=== PATIENT | female | born 2000 | race Caucasian/White ===

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

== ENCOUNTER 2022-06-13 15:10 | Observation (INO) | payer OTHER ==
[2022-06-13 15:47] LABS: ADD URINE CULTURE? NO (NO); Appearance Clear (Clear); Bacteria None Seen /HPF (None Seen); Bilirubin Negative (Negative); Blood Negative (Negative); Epithelial Cells Rare /HPF (None Seen); Glucose, Urine Negative (Negative); Hyaline Casts NONE SEEN /LPF (0-2); Ketones Trace (Negative); Leukocyte Esterase Negative (Negative); Nitrite Negative (Negative); Protein,Urine Dip Trace (Negative); RBC 0-2 /HPF (0-5); Urobilinogen 0.2 mg/dL (0.2); WBC 0-2 /HPF (0-5)
[2022-06-13 16:02] LABS: Amphetamine,Urine NEGATIVE (NEGATIVE); Barbiturate,Urine NEGATIVE (NEGATIVE); Benzodiazepine,Urine NEGATIVE (NEGATIVE); Cocaine,Urine NEGATIVE (NEGATIVE); Methadone,Urine NEGATIVE (NEGATIVE); Opiate,Urine NEGATIVE (NEGATIVE); PCP,Urine NEGATIVE (NEGATIVE); THC,Urine NEGATIVE (NEGATIVE)
[2022-06-13 16:13] VITALS: BP 144/85; PULSE 82; O2SAT 99
== END 2022-06-13 17:05 | disposition home or self-care (01) ==
LOC: OB 15:10
PROVIDERS: ADMIT Obstetrics & Gynecology; ATTEND Obstetrics & Gynecology
DX: Z34.83 Encounter for supervision of other normal pregnancy, third trimester (principal); Z3A.36 36 weeks gestation of pregnancy
CPT/HCPCS: 80307; 81001; G0378; G0379

== ENCOUNTER 2022-06-29 04:39 | Inpatient (IN) | payer OTHER ==
[~2022-06-29 04:39] MED LIST: STADOL 2 MG IV PRN
[2022-06-29 16:47] LABS: Hematocrit 30.7 % (35-47); Hemoglobin 9.5 g/dL (12.0-16.0); Mean Corpuscular Hemoglobin 26.6 pg (26-32); Mean Corpuscular Hgb Concent. 30.9 g/dL (32-36); Mean Platelet Volume 13.8 fL (7.5-11.0); Platelet Count 163 x10^3/uL (150-450); Red Blood Count 3.57 x10^6/uL (4.1-5.4); Red Cell Distribution Width 12.8 % (11.5-14.0); White Blood Count 7.2 x10^3/uL (4.0-10.5)
[2022-06-29] MEDS: CYTOTEC PO SCH ×4 (16:50→23:05)
[2022-06-29 17:27] LABS: ABO TYPING O; Antibody Screen NEGATIVE (NEGATIVE); RH TYPING POSITIVE
[2022-06-29 17:46] LABS: Amphetamine,Urine NEGATIVE (NEGATIVE); Barbiturate,Urine NEGATIVE (NEGATIVE); Benzodiazepine,Urine NEGATIVE (NEGATIVE); Cocaine,Urine NEGATIVE (NEGATIVE); Methadone,Urine NEGATIVE (NEGATIVE); Opiate,Urine NEGATIVE (NEGATIVE); PCP,Urine NEGATIVE (NEGATIVE); THC,Urine POSITIVE (NEGATIVE)
[2022-06-30] MEDS ORDERED: Ephedrine Sulfate 50 MG/ML IV PRN
[2022-06-30] MEDS ORDERED: FENTANYL 2 MCG-BUPIV 0.125%-NS 250 ML Epidur 250 ML EPIDURAL SCH
[2022-06-30] MEDS ORDERED: STADOL 2 MG IV PRN
[2022-06-30] MEDS ORDERED: Lactated Ringers 1,000 ML IV ONE
[2022-06-30] MEDS ORDERED: Lactated Ringers 1,000 ML IV SCH
[2022-06-30] MEDS: CYTOTEC PO SCH ×3 (01:05→04:59)
[2022-06-30] MEDS: Lactated Ringers 1,000 ML IV SCH ×3 (01:14→11:40)
[2022-06-30] MEDS ORDERED: Lactated Ringers 2,000 ML IV ONE (05:32)
[2022-06-30] MEDS: TYLENOL EXTRA STRENGTH 500 MG PO PRN ×2 (05:37→19:12)
[2022-06-30] MEDS ORDERED: PITOCIN 30 UNITS/ LR 500 ML 30 UNITS/500 ML PLAST..BAG IV SCH ×2 (06:00)
[2022-06-30] MEDS ORDERED: Nubain 10 MG/ML IV PRN (06:23)
[2022-06-30] MEDS: Zofran 4 MG/2 ML VIAL IV PRN ×2 (06:32→12:30)
[2022-06-30] MEDS ORDERED: MOTRIN 400 MG ONE (08:07)
[2022-06-30] MEDS: NORCO 5/325 MG PO PRN ×2 (09:00→12:30)
[2022-06-30] MEDS: Dermoplast Spray TP PRN (09:45)
[2022-06-30 10:36] LABS: BASOPHIL % 0.1 % (0.0-0.4); Basophil (Absolute #) 0.02 x10^3/uL (0-0.4); Eosinophil (Absolute #) 0 x10^3/uL (0-0.5); Hematocrit 23.6 % (35-47); Hemoglobin 7.4 g/dL (12.0-16.0); IMMATURE GRAN # 0.08 x10^3u/L (0.00-0.03); IMMATURE GRAN % 0.6 % (0.00-0.4); Lymphocyte (Absolute #) 1.17 x10^3/uL (1.0-4.6); Lymphocytes % 8.2 % (24.0-44.0); Mean Cell Volume 86.1 fL (78-100); Mean Corpuscular Hgb Concent. 31.4 g/dL (32-36); Mean Platelet Volume 12.9 fL (7.5-11.0); Monocyte (Absolute #) 0.57 x10^3/uL (0.0-1.3); Neutrophil % 87.1 % (36.0-66.0); Platelet Count 166 x10^3/uL (150-450); Red Blood Count 2.74 x10^6/uL (4.1-5.4); White Blood Count 14.2 x10^3/uL (4.0-10.5)
[2022-06-30] MEDS ORDERED: TUCKS TP ONE (10:51)
[2022-06-30 11:37] LABS: VBG BASE EXCESS -2.2 (-2.0-2.0); VBG CARBOXYHEMOGLOBIN 3.2 % T HGB (0.0-6.9); VBG HCO3- 21.1 meq/L (22-28); VBG HEMOGLOBIN 7.3; VBG O2 SATURATION 98.6 (95-100); VBG POTASSIUM 4.4 (3.5-5.1); VBG pH 7.47 (7.32-7.42)
[2022-06-30 11:39] LABS: Hematocrit 22.2 % (35-47); Mean Cell Volume 86.7 fL (78-100); Mean Corpuscular Hgb Concent. 31.1 g/dL (32-36); Mean Platelet Volume 13.4 fL (7.5-11.0); Platelet Count 191 x10^3/uL (150-450); Red Blood Count 2.56 x10^6/uL (4.1-5.4); White Blood Count 16.3 x10^3/uL (4.0-10.5)
[2022-06-30] MEDS ORDERED: TRANEXAMIC ACID 1000 MG/10 ML 1,000 MG in Sodium Chloride 0.9% 100 ML IV ONE (11:42)
[2022-06-30 11:43] LABS: Hemoglobin 6.9 g/dL (12.0-16.0)
[2022-06-30] MEDS ORDERED: Sodium Chloride 0.9% 100 ML ONE (11:43)
[2022-06-30] MEDS ORDERED: TRANEXAMIC ACID 1000 MG/10 ML ONE (11:43)
[2022-06-30] MEDS ORDERED: Sodium Chloride 0.9% 1000 ML 1,000 ML IV SCH (11:45)
[2022-06-30 11:49] LABS: ANION GAP 11.3 MEQ/L (5-15); BLOOD UREA NITROGEN 11 mg/dL (7-17); CHLORIDE 108 mmol/L (98-107); Calcium 7.7 mg/dL (8.4-10.2); Carbon Dioxide 18 mmol/L (22-30); Creatinine 1 0.52 mg/dL (0.52-1.04); EST GLOMERULAR FILTRATION RATE > 60.0 ML/MIN; Glucose 104 mg/dL (74-106); INR 1.01 (0.8-3.0); Potassium 4.5 mmol/L (3.5-5.1); SODIUM 133 mmol/L (137-145)
[2022-06-30] MEDS ORDERED: Methergine IM ONE (12:00)
[2022-06-30] MEDS: TUCKS TP PRN (12:02)
[2022-06-30 12:19] LABS: ANISOCYTOSIS 1+; Lymphocytes 7 % (24-44); Monocyte 4 % (0.0-12.0); Neutrophils 89 % (36.0-66.0); Platelet Estimate NORMAL (NORMAL); Total Cells Counted 100
[2022-06-30 12:32] LABS: CROSS MATCH (PRBC) COMPATIBLE (COMPATIBLE)
[2022-06-30] MEDS ORDERED: LANSINOH 40 GM TOP PRN (13:00)
[2022-06-30 19:23] LABS: Hematocrit 26.4 % (35-47); Hemoglobin 8.7 g/dL (12.0-16.0)
[2022-06-30] MEDS: MOTRIN 400 MG PO PRN (20:58)
[2022-06-30] MEDS: Docusate Sodium 100 MG PO SCH (21:04)
[2022-07-01] MEDS: TYLENOL EXTRA STRENGTH 500 MG PO PRN ×4 (00:02→22:01)
[2022-07-01] MEDS: MOTRIN 400 MG PO PRN ×3 (03:27→23:05)
[2022-07-01 05:03] LABS: Absolute Neutrophil Ct (ANC) 4.43 x10^3/uL (1.4-6.9); BASOPHIL % 0.1 % (0.0-0.4); Basophil (Absolute #) 0.01 x10^3/uL (0-0.4); Eosinophil % 0.4 % (0.00-5.0); Eosinophil (Absolute #) 0.03 x10^3/uL (0-0.5); Hematocrit 22.8 % (35-47); Hemoglobin 7.3 g/dL (12.0-16.0); IMMATURE GRAN # 0.03 x10^3u/L (0.00-0.03); IMMATURE GRAN % 0.4 % (0.00-0.4); Lymphocyte (Absolute #) 1.78 x10^3/uL (1.0-4.6); Lymphocytes % 26.4 % (24.0-44.0); Mean Cell Volume 87.4 fL (78-100); Mean Platelet Volume 12.7 fL (7.5-11.0); Monocyte (Absolute #) 0.46 x10^3/uL (0.0-1.3); Monocytes % 6.8 % (0.0-12.0); Neutrophil % 65.9 % (36.0-66.0); Platelet Count 122 x10^3/uL (150-450); Red Blood Count 2.61 x10^6/uL (4.1-5.4); Red Cell Distribution Width 13.5 % (11.5-14.0); White Blood Count 6.7 x10^3/uL (4.0-10.5)
[2022-07-01] MEDS: Docusate Sodium 100 MG PO SCH ×2 (09:44→22:00)
[2022-07-01] MEDS: FERREX 150 PO SCH ×3 (09:44→22:00)
[2022-07-01] MEDS ORDERED: Adacel Vial IM ONE (10:00)
[2022-07-01] MEDS ORDERED: FERREX 150 PO SCH (10:00)
[2022-07-01 10:10] LABS: HBsAg Screen Negative (Negative)
--- NOTE | 2022-07-01 10:43 | PCM.NOTE ---
Date and Time: 07/01/22 1041 Subjective Assessment: ppd 1 sp pt resting in bed and doing well without complaints ambulating and tolerating diet. pt had 2 units of prbc and stable at this time vss afebrile abd; soft uterus; firm lochia; mild hgb; 7.2 a/p sp ppd 1 with hemorrhage will repeat h/h at noon today anticipate discharge tomorrow pt received 2 units prbc OBJECTIVE DATA Vital Signs: Vital Signs - 24 hr Temp Pulse Resp BP Pulse Ox 07/01/22 07:00 97.8 F 88 20 119/69 99 07/01/22 04:00 20 07/01/22 02:18 97.2 F 76 20 142/85 99 07/01/22 00:00 96.8 F 76 18 112/55 99 06/30/22 22:00 16 06/30/22 20:00 98.2 F 86 20 139/73 100 06/30/22 16:18 98.2 F 76 16 125/73 100 06/30/22 16:00 98.2 F 90 16 122/69 100 06/30/22 12:00 101 H 18 127/71 100 Pain Assessment - Last Documented Pain Intensity [Anterior] 2 Pain Intensity 1 Pain Scale Used 0-10 Pain Scale Intake and Output: Intake & Output 06/28/22 06/29/22 06/30/22 07/01/22 11:59 11:59 11:59 11:59 Intake Total 2000 300 Output Total 800 Balance 1200 300 Weight 78.018 kg 78.111 kg Lab Results: Lab Results-Last 24 Hours 06/29/22 06/30/22 06/30/22 Range/Units 16:43 11:34 11:34 WBC 16.3 H (4.0-10.5) x10^3/uL RBC 2.56 L (4.1-5.4) x10^6/uL Hgb 6.9 L* (12.0-16.0) g/dL Hct 22.2 L (35-47) % MCV 86.7 (78-100) fL MCH 27.0 (26-32) pg MCHC 31.1 L (32-36) g/dL RDW 13.0 (11.5-14.0) % Plt Count 191 (150-450) x10^3/uL MPV 13.4 H (7.5-11.0) fL Gran % (36.0-66.0) % Immature Gran % (Auto) (0.00-0.4) % Nucleat RBC Rel Count (0.00-0.1) % Eos # (Auto) (0-0.5) x10^3/uL Immature Gran # (Auto) (0.00-0.03) x10^3u/L Absolute Lymphs (auto) (1.0-4.6) x10^3/uL Absolute Monos (auto) (0.0-1.3) x10^3/uL Absolute Nucleated RBC (0.00-0.01) x10^3u/L Lymphocytes % (24.0-44.0) % Monocytes % (0.0-12.0) % Eosinophils % (0.00-5.0) % Basophils % (0.0-0.4) % Absolute Granulocytes (1.4-6.9) x10^3/uL Segmented Neutrophils 89 H (36.0-66.0) % Lymphocytes (Manual) 7 L (24-44) % Monocytes (Manual) 4 (0.0-12.0) % Basophils # (0-0.4) x10^3/uL Platelet Estimate NORMAL (NORMAL) RBC Morphology ABNORMAL Anisocytosis 1+ Smear Path Review Pending PT 11.0 (9.4-12.5) SECONDS INR 1.01 (0.8-3.0) pO2/FiO2 Ratio % VBG pH (7.32-7.42) VBG pCO2 at Pat Temp (42-55) mm/Hg VBG pO2 at Pat Temp (25-40) mm/Hg VBG HCO3 (22-28) meq/L VBG O2 Sat (Fuad) (95-100) VBG Base Excess (-2.0-2.0) VBG Hemoglobin VBG Carboxyhemoglobin (0.0-6.9) % T HGB POC Potassium (3.5-5.1) Sodium (137-145) mmol/L Potassium (3.5-5.1) mmol/L Chloride (98-107) mmol/L Carbon Dioxide (22-30) mmol/L Anion Gap (5-15) MEQ/L BUN (7-17) mg/dL Creatinine (0.52-1.04) mg/dL Estimated GFR ML/MIN Glucose (74-106) mg/dL Calcium (8.4-10.2) mg/dL Hep Bs Antigen Negative (Negative) Crossmatch (COMPATIBLE) 06/30/22 06/30/22 06/30/22 Range/Units 11:34 11:35 19:15 WBC (4.0-10.5) x10^3/uL RBC (4.1-5.4) x10^6/uL Hgb 8.7 L D (12.0-16.0) g/dL Hct 26.4 L (35-47) % MCV (78-100) fL MCH (26-32) pg MCHC (32-36) g/dL RDW (11.5-14.0) % Plt Count (150-450) x10^3/uL MPV (7.5-11.0) fL Gran % (36.0-66.0) % Immature Gran % (Auto) (0.00-0.4) % Nucleat RBC Rel Count (0.00-0.1) % Eos # (Auto) (0-0.5) x10^3/uL Immature Gran # (Auto) (0.00-0.03) x10^3u/L Absolute Lymphs (auto) (1.0-4.6) x10^3/uL Absolute Monos (auto) (0.0-1.3) x10^3/uL Absolute Nucleated RBC (0.00-0.01) x10^3u/L Lymphocytes % (24.0-44.0) % Monocytes % (0.0-12.0) % Eosinophils % (0.00-5.0) % Basophils % (0.0-0.4) % Absolute Granulocytes (1.4-6.9) x10^3/uL Segmented Neutrophils (36.0-66.0) % Lymphocytes (Manual) (24-44) % Monocytes (Manual) (0.0-12.0) % Basophils # (0-0.4) x10^3/uL Platelet Estimate (NORMAL) RBC Morphology Anisocytosis Smear Path Review PT (9.4-12.5) SECONDS INR (0.8-3.0) pO2/FiO2 Ratio 21.0 % VBG pH 7.47 H (7.32-7.42) VBG pCO2 at Pat Temp 29 L (42-55) mm/Hg VBG pO2 at Pat Temp 104 H (25-40) mm/Hg VBG HCO3 21.1 L (22-28) meq/L VBG O2 Sat (Fuad) 98.6 (95-100) VBG Base Excess -2.2 L (-2.0-2.0) VBG Hemoglobin 7.3 L* VBG Carboxyhemoglobin 3.2 (0.0-6.9) % T HGB POC Potassium 4.4 (3.5-5.1) Sodium 133 L (137-145) mmol/L Potassium 4.5 (3.5-5.1) mmol/L Chloride 108 H (98-107) mmol/L Carbon Dioxide 18 L (22-30) mmol/L Anion Gap 11.3 (5-15) MEQ/L BUN 11 (7-17) mg/dL Creatinine 0.52 (0.52-1.04) mg/dL Estimated GFR > 60.0 ML/MIN Glucose 104 (74-106) mg/dL Calcium 7.7 L (8.4-10.2) mg/dL Hep Bs Antigen (Negative) Crossmatch (COMPATIBLE) 06/30/22 06/30/22 07/01/22 Range/Units Unknown Unknown 04:58 WBC 6.7 (4.0-10.5) x10^3/uL RBC 2.61 L (4.1-5.4) x10^6/uL Hgb 7.3 L (12.0-16.0) g/dL Hct 22.8 L (35-47) % MCV 87.4 (78-100) fL MCH 28.0 (26-32) pg MCHC 32.0 (32-36) g/dL RDW 13.5 (11.5-14.0) % Plt Count 122 L D (150-450) x10^3/uL MPV 12.7 H (7.5-11.0) fL Gran % 65.9 (36.0-66.0) % Immature Gran % (Auto) 0.4 (0.00-0.4) % Nucleat RBC Rel Count 0.0 (0.00-0.1) % Eos # (Auto) 0.03 (0-0.5) x10^3/uL Immature Gran # (Auto) 0.03 (0.00-0.03) x10^3u/L Absolute Lymphs (auto) 1.78 (1.0-4.6) x10^3/uL Absolute Monos (auto) 0.46 (0.0-1.3) x10^3/uL Absolute Nucleated RBC 0.00 (0.00-0.01) x10^3u/L Lymphocytes % 26.4 (24.0-44.0) % Monocytes % 6.8 (0.0-12.0) % Eosinophils % 0.4 (0.00-5.0) % Basophils % 0.1 (0.0-0.4) % Absolute Granulocytes 4.43 (1.4-6.9) x10^3/uL Segmented Neutrophils (36.0-66.0) % Lymphocytes (Manual) (24-44) % Monocytes (Manual) (0.0-12.0) % Basophils # 0.01 (0-0.4) x10^3/uL Platelet Estimate (NORMAL) RBC Morphology Anisocytosis Smear Path Review PT (9.4-12.5) SECONDS INR (0.8-3.0) pO2/FiO2 Ratio % VBG pH (7.32-7.42) VBG pCO2 at Pat Temp (42-55) mm/Hg VBG pO2 at Pat Temp (25-40) mm/Hg VBG HCO3 (22-28) meq/L VBG O2 Sat (Fuad) (95-100) VBG Base Excess (-2.0-2.0) VBG Hemoglobin VBG Carboxyhemoglobin (0.0-6.9) % T HGB POC Potassium (3.5-5.1) Sodium (137-145) mmol/L Potassium (3.5-5.1) mmol/L Chloride (98-107) mmol/L Carbon Dioxide (22-30) mmol/L Anion Gap (5-15) MEQ/L BUN (7-17) mg/dL Creatinine (0.52-1.04) mg/dL Estimated GFR ML/MIN Glucose (74-106) mg/dL Calcium (8.4-10.2) mg/dL Hep Bs Antigen (Negative) Crossmatch COMPATIBLE COMPATIBLE (COMPATIBLE) Assessment/Plan (1) Vaginal delivery after previous delivery () declined Current Visit: Yes Status: Acute Code(s): [id number] - (2) Vaginal delivery Current Visit: Yes Status: Acute Code(s): O80 - ENCOUNTER FOR FULL-TERM UNCOMPLICATED DELIVERY (3) Vaginal delivery Current Visit: Yes Status: Acute Code(s): O80 - ENCOUNTER FOR FULL-TERM UNCOMPLICATED DELIVERY (4) hemorrhage Current Visit: Yes Status: Acute Code(s): O72.1 - OTHER IMMEDIATE HEMORRHAGE (5) anemia Current Visit: Yes Status: Acute Code(s): O90.81 - ANEMIA OF THE PUERPERIUM
[2022-07-01 13:33] LABS: Hematocrit 25.2 % (35-47); Hemoglobin 8.1 g/dL (12.0-16.0)
[2022-07-01] MEDS: TUCKS TP PRN (13:42)
[2022-07-01] MEDS ORDERED: M-M-R II Vaccine With Diluent SQ ONE (16:30)
[2022-07-01] MEDS: Dermoplast Spray TP PRN (18:26)
[2022-07-02] MEDS: TYLENOL EXTRA STRENGTH 500 MG PO PRN (04:16)
[2022-07-02] MEDS: TUCKS TP PRN (05:06)
--- NOTE | 2022-07-02 07:37 | PCM.NOTE ---
Date and Time: 07/02/22735 Subjective Assessment: ppd 2 sp pt resting in bed and doing well ambulating and tolerating diet vss afebrile abd; soft uterus; firm lochia; mild a/p sp ppd 2 with hemorrhage dc home today fu office 3 wks OBJECTIVE DATA Vital Signs: Vital Signs - 24 hr Temp Pulse Resp BP Pulse Ox 07/02/22 02:00 97.3 F 82 20 119/64 99 07/01/22 22:00 97.3 F 89 20 124/72 99 07/01/22 17:00 93 H 18 104/67 100 07/01/22 13:00 97.9 F 97 H 18 126/71 99 07/01/22 11:47 75 20 98/54 100 Pain Assessment - Last Documented Pain Intensity [Anterior] 2 Pain Intensity 3 Pain Scale Used 0-10 Pain Scale Intake and Output: Intake & Output 06/29/22 06/30/22 07/01/22 07/02/22 11:59 11:59 11:59 11:59 Intake Total 2000 800 1500 Output Total 800 Balance 4057 067 2535 Weight 78.018 kg 78.111 kg Lab Results: Lab Results-Last 24 Hours 06/29/22 06/30/22 07/01/22 Range/Units 16:43 11:34 13:33 Hgb 8.1 L (12.0-16.0) g/dL Hct 25.2 L (35-47) % Smear Path Review Hep Bs Antigen Negative (Negative) Assessment/Plan (1) Vaginal delivery after previous delivery () declined Current Visit: Yes Status: Acute Code(s): [id number] - (2) Vaginal delivery Current Visit: Yes Status: Acute Code(s): O80 - ENCOUNTER FOR FULL-TERM UNCOMPLICATED DELIVERY (3) Vaginal delivery Current Visit: Yes Status: Acute Code(s): O80 - ENCOUNTER FOR FULL-TERM UNCOMPLICATED DELIVERY (4) hemorrhage Current Visit: Yes Status: Acute Code(s): O72.1 - OTHER IMMEDIATE HEMORRHAGE (5) anemia Current Visit: Yes Status: Acute Code(s): O90.81 - ANEMIA OF THE PUERPERIUM
--- NOTE | 2022-07-02 07:42 | PCM.DS ---
Discharge Summary Date of Admission: 06/30/22 06:45 Admitting Physician: LORI VU DO Primary Care Provider: IBIS JEAN Allergies Allergies Penicillins Allergy (Verified 09/05/19 20:31) unknown rreaction last as a child Hospital Summary - Hospital Course Hospital Course: pt was admitted on june 29 at 39 2/7 wks gestation for induction with cytotec and delivered live baby boy via without complication on june 30. pt during period experienced heavy uterine bleeding and was transfused 2 units of prbc and was given methergine and txa 1 gm for hemorrhage. pt had an ebl of approximately 1000 cc blood loss at time of delivery and immediately thereafter. pt was stable by the next day with stable hgb level at 8. at this time pt stable for discharge and was advised to take iron supplementation bid and fu in office in 3 wks. all questions answered to her satisfaction. - Vitals & Intake/Output Vital Signs: Vital Signs Temperature 97.3 F 07/02/22 02:00 Pulse Rate 82 07/02/22 02:00 Respiratory Rate 20 07/02/22 02:00 Blood Pressure 119/64 07/02/22 02:00 O2 Sat by Pulse Oximetry 99 07/02/22 02:00 Intake & Output: Intake & Output 06/29/22 06/30/22 07/01/22 07/02/22 11:59 11:59 11:59 11:59 Intake Total 2000 800 1500 Output Total 800 Balance 3123 762 3804 Weight 78.018 kg 78.111 kg - Lab Result Diagrams: 07/01/22 13:33 06/30/22 11:34 Lab Results-Last 24 Hrs: Lab Results-Last 24 Hours 06/29/22 06/30/22 07/01/22 Range/Units 16:43 11:34 13:33 Hgb 8.1 L (12.0-16.0) g/dL Hct 25.2 L (35-47) % Smear Path Review Hep Bs Antigen Negative (Negative) Final Diagnosis/Problem List - Final Discharge Diagnosis/Problem (1) Vaginal delivery after previous delivery () declined Current Visit: Yes Status: Acute Code(s): [id number] - (2) Vaginal delivery Current Visit: Yes Status: Acute Code(s): O80 - ENCOUNTER FOR FULL-TERM UNCOMPLICATED DELIVERY (3) Vaginal delivery Current Visit: Yes Status: Acute Code(s): O80 - ENCOUNTER FOR FULL-TERM UNCOMPLICATED DELIVERY (4) hemorrhage Current Visit: Yes Status: Acute Code(s): O72.1 - OTHER IMMEDIATE HEMORRHAGE (5) anemia Current Visit: Yes Status: Acute Code(s): O90.81 - ANEMIA OF THE PUERPERIUM - Discharge Disposition: Home, Self-Care Condition: Stable Prescriptions: New Ferric Maltol [Accrufer] 30 mg PO BID 30 Days #60 cap No Action Pnv No.103/Folic/Om3s/Fish Oil [ Gummies] 2 tab PO DAILY Additional Instructions: Return to the OB Unit, at the Hospital, on Thursday, July 04, with Heron, for your 48 hour follow up. Your follow up appointment with Dr. Vu is July 14 at 1:45pm Follow up with: LORI VU DO [ACTIVE STAFF] - 3 weeks
[2022-07-02 09:19] VITALS: BP 138/85; PULSE 85; O2SAT 100
[2022-07-02] MEDS: Docusate Sodium 100 MG PO SCH (09:42)
[2022-07-02] MEDS: MOTRIN 400 MG PO PRN (09:42)
[2022-07-02] MEDS: FERREX 150 PO SCH (09:43)
== END 2022-07-02 10:00 | disposition home or self-care (01) | DRG 807 ==
LOC: OB 06:45 → OBSVTOIN 06-30 06:45
PROVIDERS: ADMIT Obstetrics & Gynecology; ATTEND Obstetrics & Gynecology
PROC: 10E0XZZ Delivery of Products of Conception, External Approach (ICD-10-PCS; principal; 2022-06-30)
DX: O72.1 Other immediate postpartum hemorrhage (principal); Z37.0 Single live birth; O90.81 Anemia of the puerperium; Z3A.39 39 weeks gestation of pregnancy; Z90.81 Acquired absence of spleen; Z20.828 Contact with and (suspected) exposure to other viral communicable diseases; Z82.79 Family history of other congenital malformations, deformations and chromosomal abnormalities
CPT/HCPCS: 36415; 36430; 80048; 80307; 82805; 85014; 85018; 85025; 85027; 85610; 86850; 86900; 86901; 86922; 87340; 90471; 90707; 90715; G0378; G0379; J0595; J1330; J2300; J2405; J2590; P9016; A9270-GY